=== PATIENT | female | born 1985 | race Caucasian/White ===

== ENCOUNTER → 2016-12-19 | Outpatient (CLI) | payer OTHER ==
--- NOTE | ~2016-12-19 | MR17 ---
[facility] A Service of [facility] RADIOLOGY TEXT RESULTS PATIENT: AUDIE THOMAS LOCATION: [facility] : 84 UNIT #: [id number] AGE: [address]: Albert Lopez II, MD SEX: F ORDER DR: [id number] [facility] [address] [place], [place] [address] [id number] O MR#: [id number] Acc #: [id number] NAME: AUDIE THOMAS : 1985 SEX: F STUDY DATE/TIME: 12/19/2016 10:46 UNIT: [facility] ROOM: STUDY DESCRIPTION: MR Brain WWo Contrast Attending Physician: Albert Lopez II., M.D. Referring Physician: Albert Lopez II., M.D. Ordering Physician: Albert Lopez II., M.D. Primary Care Physician: Sita Varghese M.D. MRI CENTER REPORT This report is preliminary unless electronic signature is present. EXAM Brain MRI with and without contrast HISTORY Papilledema. Intermittent headaches for the past 7 weeks. Nausea and blurred vision. TECHNIQUE Multiplanar imaging of the brain was performed with and without contrast. 15 mL of MultiHance was used. FINDINGS On diffusion weighted images there is no evidence of abnormal restricted diffusion. The routine brain images show normal ventricular size. No white matter signal abnormalities are seen. There is no evidence of mass lesion, hemorrhage or edema. The optic nerves are symmetric and within normal limits in diameter. Postcontrast imaging shows no abnormal enhancement. Extraaxial structures are unremarkable. IMPRESSION Normal. Dictated by... Gian Vidal M.D. THIS IS AN ELECTRONICALLY VERIFIED REPORT Gian Vidal M.D. at 12/19/2016 6:21 PM RLF/elviar TD: 12/19/2016 18:07 JOB #: [id number] MRI CENTER REPORT [facility] A Service of [facility] RADIOLOGY TEXT RESULTS PATIENT: AUDIE THOMAS LOCATION: [facility] #: [id number] : 83 UNIT #: [id number] AGE: [address]: Albert Lopez II, MD SEX: F ORDER DR: Page 1 of 1 COPY
== END | disposition home or self-care (01) ==
LOC: CMRI 10:13
DX: H47.10 Unspecified papilledema (principal)
CPT/HCPCS: 70553; A9577